=== PATIENT | female | born 1980 | race Caucasian/White ===

== ENCOUNTER 2020-02-18 23:37 | Emergency (ER) | payer BC ==
[~2020-02-18] VITALS: Ht 157.5 cm; Wt 72.6 kg
[2020-02-18 23:40] VITALS: BP 150/90
--- NOTE | 2020-02-19 | NUR ---
39 Y/O FEMALE PRESENTED TO ED C/O ABD CRAMPING . PT STATES HER LMP WAS 12/12/19. PT WAS TOLD BY OBGYN THAT THE IS ECTOPIC. PT HAS HX OF ECTOPIC . PT WAS GIVEN METHTREXATE X 3 WEEKS AGO. PT DOES NOT HAVE RIGHT OVARY OR FALOPIAN TUBE AT THIS TIME. PT HAS HAD MILD CRAMPING X 3 WEEKS THAT HAS BEEN RELIEVED W/ TYLENOL. PT DENIES ANY PAIN IN LOWER LEFT ABD , PT STATES ABD PAIN IS GENERALIZED THROUGHTOUT ABD. PT STATES SHE HAD BLOOD WORK DONE LAST WEEK AND HER SERUM HCG WAS 11,000 AT THAT TIME. PT + CONSTIPATION. PT DENIES N/V/D/FEVER. PT RESTING IN BED, LOCKED AND IN LOWEST POSITION ,HOB ELEVATED, SIDE RAIL X1. AT BEDSIDE , OKAY PER CHARGE NURSE AND ERMD. ERMD MADE AWARE OF PT STATUS. PMH: ECTOPIC AX: AZITHROMYCIN
[2020-02-19] MEDS ORDERED: NACL 0.9% 1,000 ML IV ONE (00:20)
--- NOTE | 2020-02-19 00:45 | NUR ---
PT REFUSED IV AND FLUIDS AT THIS TIME.
[2020-02-19 00:46] LABS: BASOPHILS # (AUTO) 0.2 K/uL (0.00-0.22); BASOPHILS % (AUTO) 1.2 % (0.0-2.0); EOSINOPHILS # (AUTO) 0.1 K/uL (0-0.4); EOSINOPHILS % (AUTO) 0.9 % (0.0-4.0); HEMATOCRIT 36.1 % (36-48); HEMOGLOBIN 12.2 g/dL (12.0-16.0); LYMPHOCYTES # (AUTO) 2.5 K/uL (2.5-16.5); LYMPHOCYTES % (AUTO) 17.7 % (20.5-51.1); MEAN CORPUSCULAR HEMOGLOBIN 32 pg (27-31); MEAN CORPUSCULAR HGB CONC 34 g/dL (33-37); MONOCYTES # (AUTO) 0.8 K/uL (0.8-1.0); MONOCYTES % (AUTO) 5.9 % (1.7-9.3); NEUTROPHILS # (AUTO) 10.4 K/uL (1.8-7.7); NEUTROPHILS % (AUTO) 74.3 % (42.2-75.2); PLATELET COUNT (AUTO) 429 K/uL (140-450); RED BLOOD CELL COUNT(AUTO) 3.77 MIL/uL (4.20-5.40); RED CELL DISTRIBUTION WIDTH 14.1 % (11.6-13.7); WHITE BLOOD COUNT (AUTO) 13.9 K/uL (4.8-10.8)
[2020-02-19 00:47] LABS: ANION GAP 14.5 (8-16); CREATININE 0.6 mg/dL (0.6-1.3); POTASSIUM 3.5 mmol/L (3.5-5.1)
--- NOTE | 2020-02-19 00:48 | NUR ---
PT AMBULATED TO RESTROOM W/ STEADY GAIT.
--- NOTE | 2020-02-19 01:15 | NUR ---
ULTRASOUND AT BEDSIDE FOR DONE.
[2020-02-19 01:16] LABS: APPEARANCE,URINE CLEAR (CLEAR); BILIRUBIN,URINE NEGATIVE (NEGATIVE); BLOOD, URINE 3+ (NEGATIVE); COLOR,URINE YELLOW (YELLOW); LEUKOCYTE ESTERASE ,URINE NEGATIVE (NEGATIVE); NITRITE, URINE NEGATIVE (NEGATIVE); PH,URINE 5.5 (5.0-9.0); UGLUCOSE NEGATIVE (NEGATIVE)
[2020-02-19 01:38] LABS: WBC,URINE 0-5 /HPF (0-5)
--- NOTE | 2020-02-19 02:31 | NUR ---
ERMD AT BEDSIDE AT THIS TIME.
[2020-02-19 02:47] VITALS: BP 145/85
--- NOTE | 2020-02-19 02:47 | NUR ---
Patient discharged with v/s stable. Written and verbal after care instructions given and explained. Patient verbalized understanding. Ambulatory with steady gait. All questions addressed prior to discharge. Advised to follow up with PMD.
== END 2020-02-19 02:47 | disposition home or self-care (01) ==
LOC: MED 23:37
DX: R10.9 Unspecified abdominal pain (principal); F17.200 Nicotine dependence, unspecified, uncomplicated; Z88.1 Allergy status to other antibiotic agents; Z98.890 Other specified postprocedural states
CPT/HCPCS: 36415; 76801; 80048; 81001; 84702; 85025; 86900; 86901; 99281; 99283; 99284